=== PATIENT | male | born 1995 | race Caucasian/White ===

== ENCOUNTER 2019-04-14 07:09 | Emergency (ER) | payer BC, OTHER ==
[2019-04-14] MEDS ORDERED: dexAMETHasone 10 MG/ML VIAL ONE (07:57)
--- NOTE | 2019-04-14 07:57 | EDPHYS ---
Physician Documentation [facility] Name: Hal Hanna Age: 24 yrs Sex: Male : 1995 Arrival Date: 04/14/2019 Time: 07:12 Bed 16 Private MD: ED Physician Louie Tay HPI: 04/14 07:28 This 24 yrs old Male presents to ER via Ambulatory with complaints of Sore jr8 Throat, Fever. 07:28 The patient presents with sore throat. The patient describes throat pain as constant, jr8 raw. Onset: The symptoms/episode began/occurred acutely, 3 day(s) ago. Severity of symptoms: At their worst the symptoms were mild. Modifying factors: The symptoms are alleviated by nothing, the symptoms are aggravated by swallowing. Associated signs and symptoms: Pertinent positives: cough, fever, headache, rhinorrhea. It is unknown whether or not the patient has had similar symptoms in the past. The patient has not recently seen a physician. Historical: - Allergies: 07:27 No Known Allergies; jl7 - Home Meds: 07:27 None [Active]; jl7 - PMHx: 07:27 None; jl7 - PSHx: 07:27 None; jl7 - Immunization history:: Adult Immunizations up to date. - Social history:: Smoking status: Patient/guardian denies using tobacco. - Ebola Screening: : No symptoms or risks identified at this time. ROS: 07:28 Abdomen/GI: Negative for abdominal pain, nausea, vomiting, diarrhea, and constipation, jr8 Back: Negative for injury and pain, MS/Extremity: Negative for injury and deformity, Skin: Negative for injury, rash, and discoloration. 07:28 Constitutional: Positive for fever. 07:28 ENT: Positive for rhinorrhea, sore throat. 07:28 Respiratory: Positive for cough, Negative for dyspnea on exertion, shortness of breath, sputum production, wheezing. 07:28 Neuro: Positive for headache. Exam: 07:28 Eyes: Pupils equal round and reactive to light, extra-ocular motions intact. Lids and jr8 lashes normal. Conjunctiva and sclera are non-icteric and not injected. Cornea within normal limits. Periorbital areas with no swelling, redness, or edema. Neck: Trachea midline, no thyromegaly or masses palpated, and no cervical lymphadenopathy. Supple, full range of motion without nuchal rigidity, or vertebral point tenderness. No Meningismus. Cardiovascular: Regular rate and rhythm with a normal S1 and S2. No gallops, murmurs, or rubs. Normal PMI, no JVD. No pulse deficits. Respiratory: Lungs have equal breath sounds bilaterally, clear to auscultation and percussion. No rales, rhonchi or wheezes noted. No increased work of breathing, no retractions or nasal flaring. Abdomen/GI: Soft, non-tender, with normal bowel sounds. No distension or tympany. No guarding or rebound. No evidence of tenderness throughout. Back: No spinal tenderness. No costovertebral tenderness. Full range of motion. Skin: Warm, dry with normal turgor. Normal color with no rashes, no lesions, and no evidence of cellulitis. MS/ Extremity: Pulses equal, no cyanosis. Neurovascular intact. Full, normal range of motion. Neuro: Awake and alert, GCS 15, oriented to person, place, time, and situation. Cranial nerves II-XII grossly intact. Motor strength 5/5 in all extremities. Sensory grossly intact. Cerebellar exam normal. Normal gait. 07:28 ENT: External ear(s): are unremarkable, Ear canal(s): are normal, TM's: fluid levels, on the right, Examination of the other ear shows no obvious abnormality, Nose: is normal, Mouth: Lips: moist, Oral mucosa: pink and intact, moist, Gums: pink, Tongue: is moist, Posterior pharynx: Airway: patent, Tonsils: bilaterally enlarged, with erythema, no exudate, no ulcerations, Uvula: midline, non-edematous, no erythema, swelling, is not appreciated, erythema, that is mild. Vital Signs: 07:27 BP 137 / 90; Pulse 93; Resp 17 S; Temp 98.5(O); Pulse Ox 100% on R/A; Weight 97.52 kg 7 (R); Height 5 ft. 11 in. (180.34 cm) (R); Pain 8/10; 07:27 Body Mass Index 29.99 (97.52 kg, 180.34 cm) 7 MDM: 07:15 Patient medically screened. 8 07:28 Differential diagnosis: bronchitis, influenza, laryngitis, mononucleosis, peritonsillar jr8 abscess pharyngitis, retropharyngeal abcess tonsillitis, tracheobronchitis, upper respiratory infection, uvulitis, viral syndrome. Data reviewed: vital signs, nurses notes, lab test result(s). Data interpreted: Pulse oximetry: on room air is 100 %. Interpretation: normal. Counseling: I had a detailed discussion with the patient and/or guardian regarding: the historical points, exam findings, and any diagnostic results supporting the discharge/admit diagnosis, lab results. 04/14 07:25 Order name: Strep; Complete Time: 07:54 jl7 04/14 07:52 Order name: Throat Culture EDMI Administered Medications: 07:55 Drug: Decadron 10 mg Route: IM; Site: right deltoid; jl7 08:11 Follow up: Response: No adverse reaction jl7 Disposition: 04/14/19 07:55 Discharged to Home. Impression: Acute upper respiratory infection, unspecified. - Condition is Stable. - Discharge Instructions: Upper Respiratory Infection, Adult. - Prescriptions for Prednisone 20 mg Oral Tablet - take 1 tablet by ORAL route once daily for 5 days; 5 tablet. Tessalon Perles 100 mg Oral Capsule - take 1 capsule by ORAL route every 8 hours As needed; 15 capsule. - Medication Reconciliation Form, Thank You Letter, Antibiotic Education, Prescription Opioid Use form. - Follow up: Private Physician; When: As needed; Reason: Recheck today's complaints, Continuance of care, Re-evaluation by your physician. - Problem is new. - Symptoms have improved. - Notes: Pseudophed for 5 days Signatures: Dispatcher [employer] EDMI Isai Andrade PA PA jr8 Caron Lopes RN RN jl7 Corrections: (The following items were deleted from the chart) 08:12 07:55 04/14/2019 07:55 Discharged to Home. Impression: Acute upper respiratory jl7 infection, unspecified. Condition is Stable. Forms are Medication Reconciliation Form, Thank You Letter, Antibiotic Education, Prescription Opioid Use. Follow up: Private Physician; When: As needed; Reason: Recheck today's complaints, Continuance of care, Re-evaluation by your physician. Problem is new. Symptoms have improved. jr8
--- NOTE | 2019-04-14 07:57 | ER ---
Nurse's Notes [facility] Name: Hal Hanna Age: 24 yrs Sex: Male : 1995 Arrival Date: 04/14/2019 Time: 07:12 Bed 16 Private MD: Diagnosis: Acute upper respiratory infection, unspecified Presentation: 04/14 07:23 Presenting complaint: Patient states: Sore throat started , Fever started jl7 Monday, took 2 Advil today at 0600, have been taking Mucinex. 07:25 Transition of care: patient was not received from another setting of care. Onset of jl7 symptoms was April 11, 2019. Risk Assessment: Do you want to hurt yourself or someone else? Patient reports no desire to harm self or others. Initial Sepsis Screen: Does the patient meet any 2 criteria? No. Patient's initial sepsis screen is negative. Does the patient have a suspected source of infection? No. Patient's initial sepsis screen is negative. Care prior to arrival: None. 07:25 Method Of Arrival: Ambulatory jl7 07:25 Acuity: PARVEEN 4 jl7 Triage Assessment: 07:27 General: Appears in no apparent distress. uncomfortable, Behavior is calm, cooperative, jl7 appropriate for age. Pain: Complains of pain in sore throat Pain currently is 8 out of 10 on a pain scale. Quality of pain is described as burning. EENT: Throat is reddened. Neuro: Level of Consciousness is awake, alert, obeys commands, Oriented to person, place, time, situation. Cardiovascular: Patient's skin is warm and dry. Respiratory: Airway is patent Respiratory effort is even, unlabored, Respiratory pattern is regular, symmetrical. Derm: Skin is pink, warm \T\ dry. Historical: - Allergies: 07:27 No Known Allergies; jl7 - Home Meds: 07:27 None [Active]; jl7 - PMHx: 07:27 None; jl7 - PSHx: 07:27 None; jl7 - Immunization history:: Adult Immunizations up to date. - Social history:: Smoking status: Patient/guardian denies using tobacco. - Ebola Screening: : No symptoms or risks identified at this time. Screenin:30 Abuse screen: Denies threats or abuse. Denies injuries from another. Nutritional jl7 screening: No deficits noted. Tuberculosis screening: No symptoms or risk factors identified. Fall Risk None identified. Assessment: 07:30 General: See triage assessment. jl7 07:59 Reassessment: Pt will be discharged after shot time. jl7 08:00 Respiratory: Airway is patent Respiratory effort is even, unlabored, Respiratory jl7 pattern is regular, symmetrical, Breath sounds are clear bilaterally. Vital Signs: 07:27 BP 137 / 90; Pulse 93; Resp 17 S; Temp 98.5(O); Pulse Ox 100% on R/A; Weight 97.52 kg jl7 (R); Height 5 ft. 11 in. (180.34 cm) (R); Pain 8/10; 07:27 Body Mass Index 29.99 (97.52 kg, 180.34 cm) jl7 ED Course: 07:12 Patient arrived in ED. ds1 07:15 Isai Andrade PA is PHCP. jr8 07:15 Louie Tay MD is Attending Physician. jr8 07:23 Caron Lopes RN is Primary Nurse. jl7 07:26 Triage completed. jl7 07:27 Arm band placed on right wrist. jl7 07:30 Patient has correct armband on for positive identification. Bed in low position. Call jl7 light in reach. Side rails up X 1. Pulse ox on. NIBP on. 07:30 Strep swab sent to lab. jl7 08:00 No provider procedures requiring assistance completed. Patient did not have IV access jl7 during this emergency room visit. Administered Medications: 07:55 Drug: Decadron 10 mg Route: IM; Site: right deltoid; jl7 08:11 Follow up: Response: No adverse reaction jl7 Outcome: 07:55 Discharge ordered by . jr8 08:12 Discharged to home ambulatory. jl7 08:12 Condition: stable 08:12 Discharge instructions given to patient, Instructed on discharge instructions, follow up and referral plans. medication usage, Demonstrated understanding of instructions, follow-up care, medications, Prescriptions given X 2. 08:12 Patient left the ED. jl7 Signatures: Leonor Dallas ds1 Isai Andrade PA PA jr8 Caron Lopes, MARY RN jl7
[2019-04-14 08:22] VITALS: BP 137/90; TEMP 98.5; O2SAT 100
== END 2019-04-14 08:12 | disposition home or self-care (01) ==
LOC: ER 07:09
DX: J02.9 Acute pharyngitis, unspecified (principal)
CPT/HCPCS: 87070; 87081; 96372; 99284; J1100

== ENCOUNTER 2024-01-26 09:34 | Day surgery (SDC) | payer BC, OTHER ==
[2024-01-26] MEDS: Ringers Lactate 1,000 ML IV ONE (10:00)
[2024-01-26] MEDS: ACETAMINOPHEN 500 MG TAB ONE (10:10)
[2024-01-26] MEDS ORDERED: LIDOCAINE HCL/EPINEPHRINE 20 ML MDV ONE (11:59)
[2024-01-26] MEDS ORDERED: dexAMETHasone 10 MG/ML VIAL ONE (12:02)
[2024-01-26] MEDS ORDERED: propofoL 200 MG/20 ML VIAL IV ONE (12:02)
[2024-01-26] MEDS ORDERED: FENTANYL CITR 100 MCG/2 ML ONE (12:02)
[2024-01-26] MEDS ORDERED: MIDAZOLAM HCL 2 MG/2 ML INJ ONE (12:02)
[2024-01-26] MEDS ORDERED: ONDANSETRON 4 MG/2 ML VIAL ONE (12:02)
[2024-01-26] MEDS ORDERED: LIDOCAINE 1% MPF 5 ML VIAL ONE (12:02)
[2024-01-26] MEDS ORDERED: ROCURONIUM 50 MG/5 ML VIAL IV ONE (12:21)
[2024-01-26] MEDS: BUPIVACAINE 0.5% PF 10 ML VIAL ONE (12:37)
--- NOTE | 2024-01-26 13:07 | P.OP ---
Date of Service: 01/26/24 Preoperative diagnosis: [Chronic tonsillitis,] [Tonsillolithiasis] Postoperative diagnosis: [Same] Procedure: Tonsillectomy Surgeon: Venessa Huynh MD Director Drug Safety: None Anesthesia: General via endotracheal tube IV fluids: See anesthesia record Estimated blood loss: Minimal, less than 5 mL Specimen: [bilateral tonsils] Findings: Prominent tonsil stones and deep tonsil crypts Implants: None Indication: patient with persistent symptoms and findings in spite of good medical management. Details of operation: The patient was brought to the operating room and placed under general anesthesia via oral endotracheal tube. The head of bed was turned 90 degrees. A shoulder roll was placed and the neck was extended. A head drape was applied. The McIvor mouthgag was placed and suspended from the Baker stand. The oxygen concentration was confirmed with the anesthesiologist and was less than 40%. Weight-based dexamethasone was administered by the anesthesiologist. The soft palate was palpated and there was no submucous cleft. A red rubber catheter was placed in the nose and the tip withdrawn through the mouth and secured to the head drape for retraction of the soft palate. The tonsils were noted to be moderate sized with deep crypts and tonsil stones. The left tonsil was grasped with a straight Allis clamp. The Bovie electrocautery was used to incise the mucosa over the anterior pillar and identified the tonsillar capsule. The tonsil was dissected using cautery and blunt dissection until free from soft tissue attachments. A tonsil ball was placed to aid in hemostasis. The right tonsil was removed in a similar manner. The tonsillar fossa's were injected with 0.5% Marcaine with epinephrine; a total of 1.5 milliliters was used. The oropharynx was irrigated with cold saline. After suctioning, a Fisher sump orogastric tube was passed for decompression of the stomach. The red rubber catheter was removed and used to suction the oropharynx, nasopharynx, and nasal cavities. The McIvor mouthgag was removed. There was no evidence of injury to the teeth, lips, or tongue. The mandible was mobile. The patient was then awakened from anesthesia and extubated in the operating room, taken to the recovery room in stable condition. Disposition: The patient will be discharged home later today in the care of their family with written postoperative instructions and appropriate pain medications. They will follow-up in Dr. Huynh's office in approximately 1 month. They are instructed to contact Dr. Huynh's office for any bleeding or other concerns.
[2024-01-26] MEDS: HYDROMORPHONE HCL 1 MG/ML INJ ONE (13:32)
[2024-01-26 13:46] VITALS: O2SAT 99
[2024-01-26] MEDS: HYDROCOD 2.5mg-ACETAMIN 108mg/5mL Soln ONE (14:14)
[2024-01-26 14:49] VITALS: BP 132/77
[2024-01-26 14:58] VITALS: TEMP 97.8
== END 2024-01-26 14:55 | disposition home or self-care (01) ==
LOC: OR 09:34
PROVIDERS: ATTEND Otolaryngology
PROC: 0CTPXZZ Resection of Tonsils, External Approach (ICD-10-PCS; principal; 2024-01-26 10:45)
DX: J35.01 Chronic tonsillitis (principal); J35.8 Other chronic diseases of tonsils and adenoids; J02.9 Acute pharyngitis, unspecified; R03.0 Elevated blood-pressure reading, without diagnosis of hypertension; E66.3 Overweight
CPT/HCPCS: 88304; 42826; J2704; J2001; J2250; J3010; J1100; J1170; J2405; J7120

== ENCOUNTER 2024-01-29 11:28 | Emergency (ER) | payer OTHER ==
--- NOTE | 2024-01-29 11:59 | ER ---
Nurse's Notes [facility] Name: Hal Hanna Age: 28 yrs Sex: Male : 1995 Arrival Date: 01/29/2024 Time: 11:28 Bed DX4 Private MD: Diagnosis: Other acute postprocedural pain Presentation: 01/28 11:42 Chief complaint: Patient states: Coughed up a large clot yesterday, then bleeding ll1 since. Fever 100.5 yesterday. Had tonsillectomy Monday with Dr. Huynh. Coronavirus screen: Client denies travel out of the [place] in the last 14 days. At this time, the client does not indicate any symptoms associated with coronavirus-19. Ebola Screen: Patient denies travel to an Ebola-affected area in the 21 days before illness onset. Initial Sepsis Screen: Does the patient meet any 2 criteria? No. Patient's initial sepsis screen is negative. Does the patient have a suspected source of infection? No. Patient's initial sepsis screen is negative. Risk Assessment: Do you want to hurt yourself or someone else? Patient reports no desire to harm self or others. Onset of symptoms was January 28, 2024. 11:42 Method Of Arrival: Ambulatory ll1 11:42 Acuity: PARVEEN 4 ll1 Triage Assessment: 11:46 General: Appears in no apparent distress. Behavior is calm, cooperative, appropriate ll1 for age. Pain: Complains of pain in throat area Pain currently is 4 out of 10 on a pain scale. EENT: Reports pain in throat bleeding to throat area yesterday, better today. Respiratory: Denies shortness of breath. Historical: - Allergies: 11:37 No Known Allergies; ll1 - PMHx: 11:42 None; ll1 - PSHx: 11:42 Tonsillectomy; ll1 - Immunization history:: Adult Immunizations up to date. - Infectious Disease History:: Denies. - Social history:: Smoking status: Patient denies any tobacco usage or history of. Vital Signs: 11:42 BP 130 / 84; Pulse 74; Resp 17; Temp 97.1; Pulse Ox 100% ; Weight 95.25 kg; Height 6 ll1 ft. 0 in. ; Pain 4/10; 11:42 Body Mass Index 28.48 (95.25 kg, 182.88 cm) ll1 11:42 Pain Scale: Adult ll1 ED Course: 11:29 Patient arrived in ED. ra3 11:37 Arm band placed on. ll1 11:42 Sterling Velarde MD is Attending Physician. bo1 11:44 Triage completed. ll1 Administered Medications: No medications were administered Outcome: :59 Discharge ordered by . bo1 12:05 Patient left the ED. hb Signatures: Mayte Salomon RN RN Shae Pakc RN RN ll1 Ermelinda Watters ra3 Sterling Velarde MD MD bo1
--- NOTE | 2024-01-29 11:59 | EDPHYS ---
Physician Documentation [facility] Name: Hal Hanna Age: 28 yrs Sex: Male : 1995 Arrival Date: 01/29/2024 Time: 11:28 Bed DX4 Private MD: ED Physician Sterling Velarde HPI: 01/28 12:02 This 28 yrs old Unknown Male presents to ER via Ambulatory with complaints of Bleed bo1 Post Throat Sx. 12:02 Onset: The symptoms/episode began/occurred suddenly, yesterday. Severity of symptoms: bo1 At their worst the symptoms were mild Bleeding did stop - left sided tonsil pillar was the cause, pt has seen with a mirror a scab there. Recent tonsil surgery on Monday for enlargement. It bled yesterday and after talk with the ENT, pt was sent to the ER for an evaluation. Historical: - Allergies: 11:37 No Known Allergies; ll1 - PMHx: 11:42 None; ll1 - PSHx: 11:42 Tonsillectomy; ll1 - Immunization history:: Adult Immunizations up to date. - Infectious Disease History:: Denies. - Social history:: Smoking status: Patient denies any tobacco usage or history of. ROS: 12:04 Constitutional: Negative for fever, chills, and weight loss, bo1 12:04 ENT: Positive for Bleeding from the left tonsil surgery area. Stopped since yesterday, 12:04 Neck: Negative for mass, pain with movement, pain at rest, swelling, Exam: 12:05 Constitutional: This is a well developed, well nourished patient who is awake, alert, bo1 and in no acute distress. 12:05 ENT: Posterior pharynx: Tonsils: Recent surgery, cauterized sites are normal on the right - white scab. On the left is a mixed white and sub-scab clot w/o active bleeding, 12:05 Neck: External neck: is normal, no acute changes, mass, is not appreciated, swelling, is not appreciated, Trachea: is midline with no obvious abnormalities, no acute changes, Lymph nodes: no acute changes, Vital Signs: 11:42 BP 130 / 84; Pulse 74; Resp 17; Temp 97.1; Pulse Ox 100% ; Weight 95.25 kg; Height 6 ll1 ft. 0 in. ; Pain 4/10; 11:42 Body Mass Index 28.48 (95.25 kg, 182.88 cm) ll1 11:42 Pain Scale: Adult ll1 Procedures: 12:07 None indicated or needed. bo1 MDM: 11:42 Medical Screening Exam initiated bo1 11:55 Differential Diagnosis Post op tonsillar removal bleed. Data reviewed: vital signs. bo1 11:55 ED course: Based on exam and no active bleeding, option for PO TXA offered. Pt to bo1 consider with consult of his ENT. No labs or procedural intervention needed or recommended. Administered Medications: No medications were administered Disposition Summary: 01/29/24 11:59 Discharge Ordered Notes: Location: Home bo1 Problem: an acute exacerbation bo1 Symptoms: have improved bo1 Condition: Stable bo1 Diagnosis - Other acute postprocedural pain bo1 Followup: bo1 - With: Private Physician - When: Upon discharge from the Emergency Department - Reason: Recheck today's complaints, Continuance of care Discharge Instructions: - Discharge Summary Sheet ll1 - Tonsillectomy, Adult, Care After, [id number] bo1 Forms: - Work release form ll1 - Medication Reconciliation Form bo1 - Antibiotic Education bo1 - Prescription Opioid Use bo1 - Patient Portal Instructions bo1 - Leadership Thank You Letter bo1 Prescriptions: - tranexamic acid 650 mg Oral tablet - take 1 tablet ORAL route 2 times per day; 5 tablet; Refills: 0, Product bo1 Selection Permitted Signatures: Shae Cerna RN RN ll1 Sterling Velarde MD MD bo1
[2024-01-29 14:37] VITALS: BP 130/84; TEMP 97.1; O2SAT 100
== END 2024-01-29 12:05 | disposition home or self-care (01) ==
LOC: ER 11:28
DX: G89.18 Other acute postprocedural pain (principal); Z98.890 Other specified postprocedural states
CPT/HCPCS: 99281